=== PATIENT | male | born 1980 | race Hispanic/Latino ===

== ENCOUNTER 2018-08-09 13:30 | Emergency (ER) | payer OTHER ==
[2018-08-09 13:53] VITALS: BP 160/100; PULSE 77; RESP 20; TEMP 98.3; O2SAT 98
--- NOTE | 2018-08-09 14:02 | ED PDOC ---
Arrival/HPI - General Chief Complaint: Abnormal Skin Integrity Time Seen by Provider: 08/09/18 13:57 Historian: Patient - History of Present Illness Narrative History of Present Illness (Text): 08/09/18 14:01 37 year old male, with past medical history of hypertension, presents to the ED for evaluation of an area of swelling to the top of his head worsening for past 2 days. Patient informs recent lipoma surgery by Dr. Simpson on 07/30/18 without any complications. Patient reports contacting Dr. Lopez,covering Dr. Simpson, for the presented symptoms and was referred to the Emergency department for evaluation. Patient denies any other somatic complaints. Patient denies any fevers, chills, headache, dizziness, chest pain, shortness of breath, dyspnea on exertion, cough, abdominal pain, nausea, vomiting, diarrhea, back pain, neck pain, or any other complaints. 08/09/18 16:05 Time/Duration: < week Symptom Onset: Gradual Symptom Course: Unchanged Activities at Onset: Light Context: Home Past Medical History - Provider Review Nursing Documentation Reviewed: Yes - Infectious Disease Hx of Infectious Diseases: None - Cardiac Hx Hypertension: Yes - Pulmonary Hx Respiratory Disorders: No - Psychiatric Hx Depression: Yes Hx Substance Use: No - Anesthesia Hx Anesthesia Reactions: No Family/Social History - Physician Review Nursing Documentation Reviewed: Yes Family/Social History: No Known Family HX Smoking Status: Current Some Days Smoker Hx Alcohol Use: No Hx Substance Use: No Allergies/Home Meds Allergies/Adverse Reactions: Allergies Penicillins Allergy (Verified 08/09/18 13:53) RASH Home Medications: Home Meds Medication Instructions Recorded Confirmed buPROPion XL [Wellbutrin XL] 300 mg PO DAILY 08/09/18 08/09/18 Review of Systems - Physician Review All systems were reviewed & negative as marked: Yes - Review of Systems Constitutional: absent: Fevers Respiratory: absent: SOB, Cough Cardiovascular: absent: Chest Pain Gastrointestinal: absent: Abdominal Pain, Diarrhea, Nausea, Vomiting Genitourinary Male: absent: Dysuria, Urinary Output Changes Musculoskeletal: absent: Back Pain, Neck Pain Skin: Other (Area of swelling on top of head) Neurological: absent: Headache, Dizziness Psychiatric: absent: Anxiety Physical Exam Vital Signs Reviewed: Yes Vital Signs Temp Pulse Resp BP Pulse Ox 08/09/18 13:49 98.3 F 77 20 160/100 H 98 Temperature: Afebrile Blood Pressure: Hypertensive Pulse: Regular Respiratory Rate: Normal Appearance: Positive for: Well-Appearing, Non-Toxic, Comfortable Pain Distress: None Mental Status: Positive for: Alert and Oriented X 3 - Systems Exam Head: Present: Swelling (2-3 cm erythema and swelling to top of head) Pupils: Present: PERRL Extroacular Muscles: Present: EOMI Conjunctiva: Present: Normal Respiratory/Chest: Present: Clear to Auscultation, Good Air Exchange. No: Respiratory Distress, Accessory Muscle Use Cardiovascular: Present: Regular Rate and Rhythm, Normal S1, S2. No: Murmurs Back: Present: Normal Inspection Upper Extremity: Present: Normal Inspection. No: Cyanosis, Edema Lower Extremity: Present: Normal Inspection. No: Edema Neurological: Present: GCS=15, Speech Normal Skin: Present: Warm, Dry, Normal Color. No: Rashes Psychiatric: Present: Alert, Oriented x 3, Normal Insight, Normal Concentration Medical Decision Making ED Course and Treatment: 08/09/18 14:13 Impression: 37 year old male presents to the ED for evaluation of an area of swelling on top of head. Plan: -- Surgery consult -- Reassess and disposition Prior Visits: Notes and results from previous visits were reviewed. Progress Notes: 08/09/18 14:19 Surgery evaluated patient at bedside and discussed case with Dr Lopez. Requests to aspirate and send for culture and discharge patient with Bactrum with outpatient follow-up instructions. 08/09/18 16:05 ssupect heamtoma aspirated by surgical team. request antibiotisc and outpt fu. - Scribe Statement The provider has reviewed the documentation as recorded by the Scribe Marco Ralph. All medical record entries made by the Scribe were at my direction and personally dictated by me. I have reviewed the chart and agree that the record accurately reflects my personal performance of the history, physical exam, medical decision making, and the department course for this patient. I have also personally directed, reviewed, and agree with the discharge instructions and disposition. Disposition/Present on Arrival - Present on Arrival Any Indicators Present on Arrival: No History of DVT/PE: No History of Uncontrolled Diabetes: No Urinary Catheter: No History of Decub. Ulcer: No History Surgical Site Infection Following: None - Disposition Have Diagnosis and Disposition been Completed?: Yes Diagnosis: Visit for wound check Disposition: HOME/ ROUTINE Disposition Time: 13:00 Condition: STABLE Discharge Instructions (ExitCare): Wound Care (DC), Wound Infection Additional Instructions: return to er with worsneing. see your doctor in next 1-2 days. Prescriptions: Sulfamethoxazole/Trimethoprim [Bactrim DS 800 mg-160 mg] 1 tab PO BID #14 tab Forms: [employer] (Kiswahili)
[2018-08-09] MEDS ORDERED: Tmp-Smz 800 mg-160 mg DS Tab PO STA (14:21)
--- NOTE | 2018-08-09 14:41 | CP.PCM.CON ---
History of Present Illness - History of Present Illness History of Present Illness: Surgery Consult Note for Dr. Lopez CC: Increased swelling at site of lipoma extraction HPI: Patient is a 37 yo male w/ PMH of HTN and OSBALDO comes to hospital for increased swelling and erythema on top of his head at site of surgical lipoma procedure on 07/30. Patient states that after the procedure the swelling was limited. However, over the next week swelling increased progressively into the next week. On 08/06 patient noted that the swelling was much larger and overnight he had pinkish drainage oozing out that he noted on his pillow overnight. Patient decided to come to the hospital because he felt some pressure and a headache. Denies fevers, chills, chest pain, sob, n/v, constipation or diarrhea, and dysuria. PMH- HTN, OSBALDO PSH- denies FH- denies Meds- CPAP at home Allergies- PCN (unknown reaction) Social- E cig, Social drinker, Denies drug use Review of Systems - Review of Systems Review of Systems: 12 point ROS obtained and noted in HPI Past Patient History - Infectious Disease Hx of Infectious Diseases: None - Past Social History Smoking Status: Current Some Days Smoker - CARDIAC Hx Hypertension: Yes - PULMONARY Hx Respiratory Disorders: No - PSYCHIATRIC Hx Depression: Yes Hx Substance Use: No - ANESTHESIA Hx Anesthesia Reactions: No Meds Allergies/Adverse Reactions: Allergies Allergy/AdvReac Type Severity Reaction Status Date / Time Penicillins Allergy RASH Verified 08/09/18 13:53 Physical Exam - Constitutional Appears: Non-toxic, No Acute Distress - Head Exam Head Exam: ATRAUMATIC, NORMAL INSPECTION, NORMOCEPHALIC - Eye Exam Eye Exam: EOMI, Normal appearance. absent: Nystagmus, Scleral icterus - ENT Exam ENT Exam: Mucous Membranes Moist - Respiratory Exam Respiratory Exam: Clear to Auscultation Bilateral, NORMAL BREATHING PATTERN. absent: Decreased Breath Sounds, Rales, Rhonchi, Wheezes - Cardiovascular Exam Cardiovascular Exam: REGULAR RHYTHM, +S1. absent: Tachycardia - GI/Abdominal Exam GI & Abdominal Exam: Normal Bowel Sounds, Soft. absent: Diminished Bowel Sounds, Distended, Firm, Guarding, Tenderness - Extremities Exam Extremities exam: Positive for: normal inspection. Negative for: calf tenderness, pedal edema - Neurological Exam Neurological exam: Alert, Oriented x3 - Psychiatric Exam Psychiatric exam: Normal Affect, Normal Mood - Skin Skin Exam: Dry, Intact, Normal Color Results - Vital Signs Recent Vital Signs: Last Vital Signs Temp 98.3 F 08/09/18 13:49 Pulse 77 08/09/18 13:49 Resp 20 08/09/18 13:49 BP 160/100 H 08/09/18 13:49 Pulse Ox 98 08/09/18 13:49 Assessment & Plan - Assessment and Plan (Free Text) Assessment: Patient is a 37 yo male admitted for increased swelling at site of lipoma extraction Plan: Aspirated using 18 gauge needle with iodine based cleaning for hematoma evacuation (approx 1 cc of blood) Bactrim oral abx prescribed for discharge Educated to return if swelling increases or fevers or increased pain F/U with Dr. Glover PGY-1 Kelly Knowles
== END 2018-08-09 15:05 | disposition home or self-care (01) ==
LOC: ED 13:30
DX: Z48.00 Encounter for change or removal of nonsurgical wound dressing (principal); I10 Essential (primary) hypertension